=== PATIENT | male | born 1985 | race Caucasian/White ===

== ENCOUNTER 2016-08-03 18:02 | Emergency (ER) | payer OTHER ==
[2016-08-03 19:11] VITALS: RESP 18
--- NOTE | 2016-08-03 19:30 | ED ---
Male Urogenital HPI - General Chief complaint: Urogenital Stated complaint: POSS INFECTION Time Seen by Provider: 08/03/16 18:48 Source: patient, RN notes reviewed Mode of arrival: ambulatory Limitations: no limitations - History of Present Illness Initial comments: patient is a 30-year-old male presents to emergency room for reevaluation of burning during urination. Patient states he thinks he has an STD. Patient states after having sexual intercourse with his , he noticed blood after ejaculating. Patient states that today he noticed pain burning while urinating. Patient denies any known history of STDs. Patient denies any known history of his having STDs. Patient states he's been together with his for 9 years. Patient denies abdominal pain, nausea, vomiting, flank pain. Patient denies any abnormal discharge from his penis. Patient denies any swelling from his penis or abnormal lesions or itching. - Related Data Home Medications Medication Instructions Recorded Confirmed No Known Home Medications [No 08/03/16 08/03/16 Known Home Medications] Allergies Allergy/AdvReac Type Severity Reaction Status Date / Time grass pollen-perennial rye, Allergy Dyspnea Verified 08/03/16 19:49 standar Review of Systems ROS Statement: Those systems with pertinent positive or pertinent negative responses have been documented in the HPI. ROS Other: All systems not noted in ROS Statement are negative. Past Medical History Past Medical History: No Reported History History of Any Multi-Drug Resistant Organisms: None Reported Past Surgical History: Ear Surgery, Joint Replacement Past Psychological History: No Psychological Hx Reported Smoking Status: Current every day smoker Past Alcohol Use History: Occasional Past Drug Use History: Marijuana General Exam - General Exam Comments Initial Comments: sitting in exam room, no acute distress. Limitations: no limitations General appearance: alert, in no apparent distress Head exam: Present: atraumatic, normocephalic, normal inspection Eye exam: Present: normal appearance ENT exam: Present: normal exam Neck exam: Present: normal inspection Respiratory exam: Absent: respiratory distress exam: Present: normal inspection, circumcision. Absent: testicular tenderness, urethral discharge, scrotal swelling Extremities exam: Present: normal inspection Back exam: Present: normal inspection Neurological exam: Present: alert, oriented X3, CN II-XII intact, normal gait Psychiatric exam: Present: normal affect, normal mood Skin exam: Present: warm, dry, intact, normal color. Absent: rash Course Vital Signs 08/03/16 08/03/16 18:33 19:09 Temperature 98.2 F 97.7 F Pulse Rate 78 71 Respiratory 20 18 Rate Blood Pressure 130/61 119/67 O2 Sat by Pulse 98 97 Oximetry Medical Decision Making - Medical Decision Making patient is a 30-year-old male presents emergency room for evaluation of burning while urinating. Physical exam shows no acute findings. Urinalysis questionable for urinary tract infection. Culture pending. Gonorrhea and chlamydia cultures pending. Will prophylactically treat patient for STD. Advised patient to follow-up with results. advised patient to refrain from sexual intercourse until results Received. Patient states he understands everything that was discussed with him. Return parameters discussed. Case discussed with Dr. [place]. - Lab Data Lab Results 08/03/16 Range/Units 18:59 Urine Color Yellow Urine Appearance Clear (Clear) Urine pH 5.0 (5.0-8.0) Ur Specific [place] 1.028 (1.001-1.035) Urine Protein Trace H (Negative) Urine Glucose (UA) Negative (Negative) Urine Ketones Negative (Negative) Urine Blood Negative (Negative) Urine Nitrite Negative (Negative) Urine Bilirubin Negative (Negative) Urine Urobilinogen 2.0 (<2.0) mg/dL Ur Leukocyte Esterase Trace H (Negative) Urine RBC <1 (0-5) /hpf Urine WBC 6 H (0-5) /hpf Urine Bacteria Rare H (None) /hpf Urine Mucus Rare H (None) /hpf Disposition Clinical Impression: Urethritis Disposition: HOME SELF-CARE Condition: Good Instructions: Nonspecific Urethritis in Men (ED) Additional Instructions: No sexual intercourse until results return and symptoms improve. Please follow up with primary care provider for reevaluation. If any new symptom arises or symptoms worsen, return to ER as soon as possible. Referrals: Shon Mcdowell MD [Primary Care Provider] - 1-2 days Time of Disposition: 19:53
[2016-08-03 19:31] LABS: Appearance,Urine Clear (Clear); Bacteria,Urine Rare /hpf; Bilirubin,Urine Negative (Negative); Glucose,Urine (UA) Negative (Negative); Ketones,Urine Negative (Negative); Leukocyte Esterase,Urine Trace (Negative); Mucus,Urine Rare /hpf; Nitrite,Urine Negative (Negative); Particle Count 3846; Protein,Urine Trace (Negative); RBC,Urine <1 /hpf (0-5); Specific Gravity,Urine 1.028 (1.001-1.035); UA Billing (MACRO vs. MICRO) MICRO; WBC,Urine 6 /hpf (0-5)
[2016-08-03] MEDS ORDERED: AZITHROMYCIN 500 MG TAB PO STA (19:52)
[2016-08-03] MEDS ORDERED: cefTRIAXone 250 MG VIAL IM STA (19:52)
[2016-08-03 20:32] VITALS: BP 128/78; PULSE 85; TEMP 97.9
== END 2016-08-03 20:32 | disposition home or self-care (01) ==
LOC: EC 18:02
DX: N34.2 Other urethritis (principal); F17.200 Nicotine dependence, unspecified, uncomplicated; Z91.048 Other nonmedicinal substance allergy status
CPT/HCPCS: 87591; 87491; 81001; 87086; 99283; 96372; J0696

== ENCOUNTER → 2019-04-04 | Outpatient (CLI) | payer OTHER ==
--- NOTE | 2019-04-04 13:57 | US ---
EXAMINATION TYPE: US kidneys/renal and bladder DATE OF EXAM: 04/04/2019 COMPARISON: NONE CLINICAL HISTORY: N28.9 Hx kidney stones, N39.0 Frequent UTI's. Patient was recently treated for UTI as was also having urinary frequency; c/o bilateral low back pain EXAM MEASUREMENTS: Right Kidney: 10.4 x 5.5x 3.9 cm Left Kidney: 10.3 x 6.2 x 6.4 cm Post Void Residual Volume: 4.0 mL Right Kidney: No hydronephrosis or masses seen Left Kidney: No hydronephrosis or masses seen Bladder: wnl Bilateral Jets seen: not seen after 3 minute observation Normal Post Void Residual: yes There is no evidence for hydronephrosis at this point in time. No nephrolithiasis is seen. No benjie s are identified. The urinary bladder is anechoic. IMPRESSION: Unremarkable examination. No hydronephrosis nor nephrolithiasis. No abnormal post void re sidual of the urinary bladder.
== END | disposition home or self-care (01) ==
LOC: RADUSWWP 13:14
PROVIDERS: ATTEND Internal Medicine
DX: N39.0 Urinary tract infection, site not specified (principal); N28.9 Disorder of kidney and ureter, unspecified
CPT/HCPCS: 76770

== ENCOUNTER 2023-12-24 06:02 | Emergency (ER) | payer SELFPAY ==
[2023-12-24 06:19] VITALS: RESP 18; TEMP 98.7
--- NOTE | 2023-12-24 07:23 | ED ---
ENT HPI - General Chief complaint: Dental/Oral Stated complaint: Toothache Time Seen by Provider: 12/24/23 06:20 Source: patient, RN notes reviewed Mode of arrival: ambulatory Limitations: no limitations - History of Present Illness Initial comments: This is a 37-year-old male presents emergency department chief complaint of dental pain and right sided facial swelling that has been worsening over the past approximately 36 hours. Patient states that he is concerned that he may have a dental abscess. States that this has happened in the past. He denies nausea, vomiting, fevers, chills, difficulty breathing, drooling, swallowing or chest pain. Patient denies recent antibiotic use. - Related Data Previous Rx's Medication Instructions Recorded Amoxic-Pot Clav 875-125Mg 1 tab PO Q12HR #20 tab 12/24/23 [Augmentin 875-125] Ibuprofen [Motrin] 800 mg PO Q8HR PRN #30 tab 12/24/23 Allergies Allergy/AdvReac Type Severity Reaction Status Date / Time grass pollen-perennial rye, Allergy Dyspnea Verified 12/24/23 06:19 standar Review of Systems ROS Statement: Those systems with pertinent positive or pertinent negative responses have been documented in the HPI. ROS Other: All systems not noted in ROS Statement are negative. Past Medical History Past Medical History: No Reported History History of Any Multi-Drug Resistant Organisms: None Reported Past Surgical History: Ear Surgery, Joint Replacement Past Psychological History: No Psychological Hx Reported Smoking Status: Current every day smoker Past Alcohol Use History: Occasional Past Drug Use History: Marijuana General Exam Limitations: no limitations General appearance: alert, in no apparent distress Head exam: Present: atraumatic, normocephalic, normal inspection Eye exam: Present: normal appearance, PERRL, EOMI. Absent: scleral icterus, conjunctival injection, periorbital swelling Expanded Mouth exam: Present: other (right mandibular facial swelling with no signs of erythema, no warmth) Teeth exam: Present: dental caries, fractured tooth #, dental tenderness #, other (dental abscess) Neck exam: Present: normal inspection. Absent: tenderness, meningismus, lymphadenopathy Respiratory exam: Present: normal lung sounds bilaterally. Absent: respiratory distress, wheezes, rales, rhonchi, stridor Cardiovascular Exam: Present: regular rate, normal rhythm, normal heart sounds. Absent: systolic murmur, diastolic murmur, rubs, gallop, clicks GI/Abdominal exam: Present: soft, normal bowel sounds. Absent: distended, tenderness, guarding, rebound, rigid Extremities exam: Present: normal inspection, full ROM, normal capillary refill. Absent: tenderness, pedal edema, joint swelling, calf tenderness Course Vital Signs 12/24/23 12/24/23 06:17 07:55 Temperature 98.7 F Pulse Rate 84 76 Respiratory 18 18 Rate Blood Pressure 145/84 138/75 O2 Sat by Pulse 99 98 Oximetry Medical Decision Making - Medical Decision Making Was pt. sent in by a medical professional or institution (, [facility], CONTRACT DRIVER, urgent care, hospital, or [facility]...) When possible be specific @ -No Did you speak to anyone other than the patient for history (EMS, parent, family, police, friend...)? What history was obtained from this source @ -No Did you review nursing and triage notes (agree or disagree)? Why? @ -I reviewed and agree with nursing and triage notes Were old charts reviewed (outside hosp., previous admission, EMS record, old EKG, old radiological studies, urgent care reports/EKG's, [facility] records)? Report findings @ -No old charts were reviewed Differential Diagnosis (chest pain, altered mental status, abdominal pain women, abdominal pain men, vaginal bleeding, weakness, fever, dyspnea, syncope, headache, dizziness, GI bleed, back pain, seizure, CVA, palpatations, mental health, musculoskeletal)? @ -Dental infection, dental caries, dental abscess, pulpitis, this list is not all inclusive EKG interpreted by me (3pts min.). @ -none X-rays interpreted by me (1pt min.). @ -None done CT interpreted by me (1pt min.). @ -None done U/S interpreted by me (1pt. min.). @ -None done What testing was considered but not performed or refused? (CT, X-rays, U/S, labs)? Why? @ -None What meds were considered but not given or refused? Why? @ -None Did you discuss the management of the patient with other professionals (professionals i.e. [facility] Gould, CONTRACT DRIVER, lab, RT, psych nurse, group social worker, type rolling machine operator, teacher, chief green officer, lead case manager)? Give summary @ -No Was smoking cessation discussed for >3mins.? @ -No Was critical care preformed (if so, how long)? @ -No Were there social determinants of health that impacted care today? How? (Homelessness, low income, unemployed, alcoholism, drug addiction, transportation, low edu. Level, literacy, decrease access to med. care, half-way, rehab)? @ -No Was there de-escalation of care discussed even if they declined (Discuss DNR or withdrawal of care, Hospice)? DNR status @ -No What co-morbidities impacted this encounter? (DM, HTN, Smoking, COPD, CAD, Cancer, CVA, ARF, Chemo, Hep., AIDS, mental health diagnosis, sleep apnea, morbid obesity)? @ -None Was patient admitted / discharged? Hospital course, mention meds given and route, prescriptions, significant lab abnormalities, going to OR and other pertinent info. @ -Discharge. 37-year-old male with dental pain and facial swelling. On my evaluation patient is resting company no signs acute distress. He is noted to have stable vitals. Physical examination remarkable for right sided mandibular facial swelling with no signs of erythema externally or warmth to the touch. Patient has no tongue or lip swelling with no swelling of the floor of the mouth. There is no signs of trismus or drooling. There is no tonsillar deviation. There is noted dental abscess of the right mandibular molar. Offered incision and drainage of the abscess however patient is declined at this time stating he would not like any injections and is concerned with needles. He is provided with description for Augmentin and ibuprofen to take as needed pain and instructed to schedule a follow-up appoint with dentist this week for further evaluation. Discussed with Dr. Harper Undiagnosed new problem with uncertain prognosis? @ -No Drug Therapy requiring intensive monitoring for toxicity (Heparin, Nitro, Insulin, Cardizem)? @ -No Were any procedures done? @ -No Diagnosis/symptom? @ -Dental pain, dental abscess, dental infection Acute, or Chronic, or Acute on Chronic? @ -Acute Uncomplicated (without systemic symptoms) or Complicated (systemic symptoms)? @ -uncomplicated Side effects of treatment? @ -No Exacerbation, Progression, or Severe Exacerbation? @ -No Poses a threat to life or bodily function? How? (Chest pain, [place], [place], pneumonia, PE, COPD, DKA, ARF, appy, cholecystitis, CVA, Diverticulitis, Homicidal, Suicidal, threat to staff... and all critical care pts) @ -No Disposition Clinical Impression: Dental abscess, Dental infection Disposition: HOME SELF-CARE Condition: Good Instructions (If sedation given, give patient instructions): Dental Abscess (ED) Additional Instructions: Please return to the Emergency Department if symptoms worsen or any other concerns. Complete full course of Augmentin as prescribed and take Motrin as needed for pain. Recommend that you follow-up with a dentist within the week as well for further evaluation. Prescriptions: Amoxic-Pot Clav 875-125Mg [Augmentin 875-125] 1 tab PO Q12HR #20 tab Ibuprofen [Motrin] 800 mg PO Q8HR PRN #30 tab PRN Reason: Pain Is patient prescribed a controlled substance at d/c from ED?: No Referrals: None,Stated [Primary Care Provider] - 1-2 days Time of Disposition: 07:23
[2023-12-24 07:56] VITALS: BP 138/75; PULSE 76
== END 2023-12-24 07:56 | disposition home or self-care (01) ==
LOC: EC 06:02
CPT/HCPCS: 99282